=== PATIENT | female | born 1980 | race Asian ===

== ENCOUNTER 2018-12-16 17:21 | Emergency (ER) | payer MEDICAID ==
[~2018-12-16] VITALS: Ht 162.6 cm; Wt 64.4 kg
[2018-12-16 17:34] VITALS: BP_SYST 142
[2018-12-16] MEDS ORDERED: ONDANSETRON HCL 4 MG/2 ML VIAL IM ONE (18:00)
[2018-12-16] MEDS ORDERED: chlordiazePOXIDE HCL 25 MG CAPSULE PO ONE (18:15)
[2018-12-16 19:45] VITALS: BP_SYST 135
== END 2018-12-16 19:45 | disposition home or self-care (01) ==
LOC: SED 17:21
DX: F10.129 Alcohol abuse with intoxication, unspecified (principal); F17.210 Nicotine dependence, cigarettes, uncomplicated; I10 Essential (primary) hypertension; Z88.0 Allergy status to penicillin
CPT/HCPCS: 96372; 99283; J2405

== ENCOUNTER 2023-04-11 21:05 | Inpatient (IN) | payer MEDICAID ==
[~2023-04-11] VITALS: Ht 165.1 cm; Wt 61.2 kg
--- NOTE | 2023-04-11 22:13 | NUR ---
Patient placed in ER bed 8 for evaluation. Report given to PURA HULL for continuity of care. Bed in lowest position with side rails up. Instructed patient to notify ED staff for any changes in condition or worsening of symptoms. Patient verbalized understanding.
--- NOTE | 2023-04-11 22:30 | NUR ---
Patient presents with tremor related to alcohol withdrawl, patient states she drinks 350ml of alcohol daily but did not drink within the last 24 hours, states she has been using librium to assist with detoxing
--- NOTE | 2023-04-11 22:52 | NUR ---
Dr. KNAPP is at bedside examining the patient.
[2023-04-11] MEDS ORDERED: LORazepam 2 MG/ML VIAL IVP ONE (23:00)
[2023-04-11] MEDS ORDERED: NACL 0.9% 1,000 ML IV ONE (23:00)
[2023-04-11] MEDS ORDERED: ONDANSETRON HCL 4 MG/2 ML VIAL IVP ONE (23:00)
--- NOTE | 2023-04-11 23:18 | NUR ---
22g IV placed inleft wrist, IV would not draw blood, blood to be drawn by lab, medications given, IV fluids in progress,patient instructed not to consume fluids due to vomiting
[2023-04-11 23:52] LABS: BASOPHILS # (AUTO) 0.1 K/uL (0.0-0.2); BASOPHILS % (AUTO) 1.3 % (0.0-2.0); HEMATOCRIT 34.5 % (36-48); HEMOGLOBIN 11.8 g/dL (12.0-16.0); LYMPHOCYTES # (AUTO) 0.5 K/uL (1.0-5.5); LYMPHOCYTES % (AUTO) 5.3 % (20.5-51.5); MEAN CORPUSCULAR HEMOGLOBIN 33 pg (27-31); MEAN CORPUSCULAR HGB CONC 34 % (32-36); MEAN CORPUSCULAR VOLUME 97 fL (79.0-98.0); MONOCYTES # (AUTO) 0.5 K/uL (0.0-1.0); MONOCYTES % (AUTO) 5.8 % (1.7-9.3); NEUTROPHILS # (AUTO) 7.5 K/uL (1.8-7.7); NEUTROPHILS % (AUTO) 87.6 % (40.0-70.0); PLATELET COUNT (AUTO) 104 K/uL (130-430); RED BLOOD CELL COUNT(AUTO) 3.57 MIL/uL (4.2-6.2); RED CELL DISTRIBUTION WIDTH 17.1 % (9.0-15.0); WHITE BLOOD COUNT (AUTO) 8.5 K/uL (4.8-10.8)
[2023-04-12 00:11] LABS: ALANINE AMINOTRANSFERASE 33 U/L (12-78); ALBUMIN 3.4 g/dL (3.4-4.8); ANION GAP 14 (5-15); ASPARTATE AMINOTRANSFERASE 181 U/L (10-37); CALCIUM 7.7 mg/dL (8.4-11.0); CHLORIDE 98 mmol/L (98-107); CREATININE 1.18 mg/dL (0.55-1.30); GFR AFRICAN AMERICAN 64 mL/min (>90); GLUCOSE 194 mg/dL (70-99); TOTAL BILIRUBIN 1.8 mg/dL (0.0-1.0); UREA NITROGEN, BLOOD 9 mg/dL (8-21)
[2023-04-12 00:13] LABS: ACETAMINOPHEN < 1 ug/mL (1-30); ALCOHOL, BLOOD < 3 mg/dL (<10)
[2023-04-12] MEDS ORDERED: POTASSIUM CHLORIDE 40 MEQ in D5W 250 ML IV ONE (00:15)
[2023-04-12] MEDS ORDERED: KCL 40 mEq in 100 mL (PREMIX) 100 ML IV ONE (00:25)
[2023-04-12] MEDS ORDERED: LORazepam 2 MG/ML VIAL IVP ONE (01:00)
--- NOTE | 2023-04-12 01:09 | NUR ---
IV POTASSIUM IN PROGRESS FOR CRITCAL LAB VALUE OF 2.4, SECOND DOSE OF IVP ATIVAN GIVEN FOR TREMORS
[2023-04-12 01:15] LABS: BILIRUBIN,URINE 2+ (NEGATIVE); BLOOD, URINE 1+ (NEGATIVE); CLARITY/URINE SL CLOUDY (CLEAR); COLOR,URINE YELLOW (YELLOW); GLUCOSE,URINE NEGATIVE (NEGATIVE); KETONES,URINE TRACE (NEGATIVE); NITRITE, URINE NEGATIVE (NEGATIVE); PH,URINE 6.5 (5.0-8.0); PROTEIN URINE 3+ (NEGATIVE)
--- NOTE | 2023-04-12 01:23 | NUR ---
Dr. KNAPP is at bedside RE-examining the patient.
[2023-04-12 01:27] LABS: LEUKOCYTE ESTERASE ,URINE 1+ (NEGATIVE)
[2023-04-12] MEDS ORDERED: MAGNESIUM SULFATE 50 ML IV ONE (01:30)
[2023-04-12] MEDS ORDERED: FOLIC ACID 1 MG, THIAMINE HCL 100 MG, MAGNESIUM SULFATE 1 GM, MVI 10 ML in NACL 0.9% 1,... IV ONE (01:30)
[2023-04-12 01:40] LABS: BACTERIA,URINE MODERATE /HPF (None Seen); WBC,URINE 20-50 /HPF (0-3)
[2023-04-12] MEDS ORDERED: MAGNESIUM SULFATE 1 GM/2 ML VIAL ONE (01:41)
[2023-04-12] MEDS ORDERED: FOLIC ACID 5 MG/ML VIAL IV ONE (01:41)
[2023-04-12] MEDS ORDERED: THIAMINE HCL 100 MG/ML VIAL ONE (01:41)
[2023-04-12] MEDS: NACL 0.9% 1,000 ML IV SCH ×4 (02:16→23:46)
[2023-04-12] MEDS ORDERED: LOPERAMIDE HCL 2 MG CAPSULE PO ONE ×2 (02:30→08:00)
[2023-04-12 04:13] VITALS: BP_SYST 132
--- NOTE | 2023-04-12 04:23 | NUR ---
Transfer to via ACLS protocol. Licensed nurse present. IV present no signs or symptoms of infiltration.
[2023-04-12] MEDS: LORazepam 2 MG/ML VIAL IVP PRN ×3 (05:55→21:03)
--- NOTE | 2023-04-12 06:00 | NUR ---
NOTES: p[t. assisted to the restroom, uses cane. had another loose stool. IV NS resume at 100 cc/hr. KCL drip almost infuse. left wrist IV accidentally came out. pt. anxious. Ativan IV given as ordered. needs attended will endorse to incoming shift.
--- NOTE | 2023-04-12 06:55 | NUR ---
CLOSING NOTES;' pt. asleep, significant other at bedside. IV site patent, for further care and observation. will endorse to incoming shift.
[2023-04-12 07:19] LABS: BASOPHILS # (AUTO) 0.1 K/uL (0.0-0.2); BASOPHILS % (AUTO) 0.6 % (0.0-2.0); HEMATOCRIT 28.9 % (36-48); HEMOGLOBIN 9.7 g/dL (12.0-16.0); LYMPHOCYTES # (AUTO) 1.7 K/uL (1.0-5.5); LYMPHOCYTES % (AUTO) 20.7 % (20.5-51.5); MEAN CORPUSCULAR HEMOGLOBIN 33 pg (27-31); MEAN CORPUSCULAR HGB CONC 34 % (32-36); MEAN CORPUSCULAR VOLUME 99 fL (79.0-98.0); MONOCYTES # (AUTO) 0.9 K/uL (0.0-1.0); MONOCYTES % (AUTO) 11.3 % (1.7-9.3); NEUTROPHILS # (AUTO) 5.5 K/uL (1.8-7.7); NEUTROPHILS % (AUTO) 67.4 % (40.0-70.0); PLATELET COUNT (AUTO) 82 K/uL (130-430); RED BLOOD CELL COUNT(AUTO) 2.91 MIL/uL (4.2-6.2); RED CELL DISTRIBUTION WIDTH 16.6 % (9.0-15.0); WHITE BLOOD COUNT (AUTO) 8.2 K/uL (4.8-10.8)
[2023-04-12 07:28] LABS: ALBUMIN 2.5 g/dL (3.4-4.8); CREATININE 0.75 mg/dL (0.55-1.30); TOTAL BILIRUBIN 1.6 mg/dL (0.0-1.0)
[2023-04-12 07:35] LABS: CALCIUM 6.3 mg/dL (8.4-11.0)
[2023-04-12 08:00] VITALS: BP_SYST 137
[2023-04-12] MEDS ORDERED: DOCUSATE SODIUM 100 MG CAPSULE PO PRN (08:00)
[2023-04-12] MEDS ORDERED: ACETAMINOPHEN 325 MG TABLET PO PRN ×2 (08:00→08:30)
[2023-04-12] MEDS ORDERED: MUPIROCIN 2% TOPICAL OINTMENT 22 GM NS PRN (08:00)
[2023-04-12] MEDS ORDERED: ZOLPIDEM TARTRATE 5 MG TABLET PO PRN (08:00)
[2023-04-12] MEDS ORDERED: MAGNESIUM SULFATE 50 ML IV PRN (08:00)
[2023-04-12] MEDS ORDERED: ONDANSETRON HCL 4 MG/2 ML VIAL IVP PRN (08:00)
--- NOTE | 2023-04-12 08:00 | NUR ---
Start of shift Pt drowsy and lethargic - lying in bed, easily arousable at this time. Dr Thomas was at bedside assessing pt. Pt's friend Chava still at bedside, spent the night at bedside. Pt's tele unit attached and intact. IV in LAC intact and patent infusing IVF's. Call light within reach.
[2023-04-12] MEDS ORDERED: CALCIUM GLUCONATE 500 MG TAB Non-Formulary PO SCH (09:00)
[2023-04-12] MEDS: THIAMINE HCL 100 MG TABLET PO SCH (09:01)
[2023-04-12] MEDS: chlordiazePOXIDE HCL 25 MG CAPSULE PO SCH ×3 (09:02→21:04)
[2023-04-12] MEDS: FOLIC ACID 1 MG TABLET PO SCH (09:02)
[2023-04-12] MEDS: POTASSIUM CHLORIDE 20 MEQ TAB.PRT.SR PO SCH ×2 (09:02→21:04)
[2023-04-12] MEDS: CALCIUM 500 MG/TAB PO SCH ×2 (09:49→21:04)
[2023-04-12 11:17] VITALS: BP_SYST 129
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
--- NOTE | 2023-04-12 14:10 | NUR ---
Note Pt's friend left bedside around 0920am and now returned to bedside around 1145am. Pt encouraged to call before getting OOB with IV pole to go to restroom. Pt had 2 episodes of diarrhea. Pt was given BSC, informed she still needs to call for assistance before getting OOB to BSC or restroom. Pt's friend stated he would be at bedside to assist pt OOB to restroom or BSC. Pt sleepy at this time. Pt eating her Clear liquids lunch slowly. No N/V noted all shift. Call light within reach. No needs noted.
[2023-04-12 15:29] VITALS: BP_SYST 132
--- NOTE | 2023-04-12 18:40 | NUR ---
End of shift Pt resting in bed, friend Chava at bedside. IV in LAC intact and patent infusing IVF's well. Pt has been using BSC with standby assist from friend. Pt had no severe seizure activity or withdrawal from ETOH all shift. Pt was maintained with safety precautions all shift. Pt was checked on q1' and PRN all shift for needs and care. Tele unit attached and intact. Call light within reach. No needs noted.
[2023-04-12 19:42] LABS: BARBITURATE, URINE NEGATIVE (NEG <=200); BENZODIAZEPINE, URINE POSITIVE (NEG <=150); METHAMPHETAMINES SCREEN,URINE NEGATIVE (NEG <=500); URINE AMPHETAMINE NEGATIVE (NEG <=500); URINE METHADONE NEGATIVE (NEG <=200)
[2023-04-12 19:43] LABS: CANNABINOID, URINE NEGATIVE (NEG <=50); COCAINE, URINE NEGATIVE (NEG <=150); OPIATE, URINE NEGATIVE (NEG <=100); PHENCYCLIDINE SCREEN,URINE NEGATIVE (NEG <=25); UR TRICYCLIC ANTIDEPRESSANTS NEGATIVE (NEG <=300); URINE OXYCODONE SCREEN NEGATIVE (NEG <=100); URINE PROPOXYPHENE SCREEN NEGATIVE (NEG <=300)
--- NOTE | 2023-04-12 20:00 | NUR ---
Recieved pt from AM shift. Pt aox4, weak, infiltrated IV replaced with 20g right forearm. Pt encouraged to call before getting OOB with IV pole to go to restroom through the nite.. Pt requested immodium for prophylaxis due to bouts of diarhea. none noted today. Pt is nauseated, and will give medications to resolve. . Pt was given BSC, informed she still needs to call for assistance before getting OOB to BSC or restroom. Pt's friend stated he would be at bedside to assist pt OOB to restroom or BSC. Pt tired at this time. Pt eating her Clear liquids lunch slowly. Call light within reach. No needs noted by pt and partner at bedside. will continue to monitor through the night.
[2023-04-12 20:11] VITALS: BP_SYST 129
[2023-04-12 20:12] VITALS: BP_SYST 129
--- NOTE | 2023-04-12 21:00 | NUR ---
pt requests ativan, will asses and re-evaluate.
[2023-04-13 01:31] VITALS: BP_SYST 132
[2023-04-13] MEDS: LORazepam 2 MG/ML VIAL IVP PRN (03:45)
--- NOTE | 2023-04-13 03:52 | NUR ---
gave 2mg of ativan per pt request. will re-evaluate
[2023-04-13 05:02] LABS: BASOPHILS # (AUTO) 0.1 K/uL (0.0-0.2); BASOPHILS % (AUTO) 1.2 % (0.0-2.0); EOSINOPHILS # (AUTO) 0.1 K/uL (0.0-0.4); EOSINOPHILS % (AUTO) 2.3 % (0.0-4.0); HEMATOCRIT 27.7 % (36-48); HEMOGLOBIN 9.3 g/dL (12.0-16.0); LYMPHOCYTES # (AUTO) 2.3 K/uL (1.0-5.5); LYMPHOCYTES % (AUTO) 40.4 % (20.5-51.5); MEAN CORPUSCULAR HEMOGLOBIN 34 pg (27-31); MEAN CORPUSCULAR HGB CONC 34 % (32-36); MEAN CORPUSCULAR VOLUME 100 fL (79.0-98.0); MONOCYTES # (AUTO) 0.6 K/uL (0.0-1.0); MONOCYTES % (AUTO) 11.1 % (1.7-9.3); NEUTROPHILS # (AUTO) 2.6 K/uL (1.8-7.7); PLATELET COUNT (AUTO) 89 K/uL (130-430); RED BLOOD CELL COUNT(AUTO) 2.77 MIL/uL (4.2-6.2); RED CELL DISTRIBUTION WIDTH 16.7 % (9.0-15.0); WHITE BLOOD COUNT (AUTO) 5.7 K/uL (4.8-10.8)
[2023-04-13 05:21] LABS: ALBUMIN 2.6 g/dL (3.4-4.8); CALCIUM 7.5 mg/dL (8.4-11.0); CREATININE 0.58 mg/dL (0.55-1.30); TOTAL BILIRUBIN 1.3 mg/dL (0.0-1.0)
--- NOTE | 2023-04-13 05:31 | NUR ---
CL K+ 2.7 called MD.
--- NOTE | 2023-04-13 05:44 | NUR ---
NNO per Primary MD
[2023-04-13] MEDS: POTASSIUM CHLORIDE 20 MEQ TAB.PRT.SR PO PRN ×2 (05:56→09:18)
[2023-04-13] MEDS: NACL 0.9% 1,000 ML IV SCH ×2 (05:58→11:16)
--- NOTE | 2023-04-13 06:01 | NUR ---
prn 40 meq kdur given. K+ 2.7
--- NOTE | 2023-04-13 07:30 | NUR ---
OPENING NOTE Patient laying in bed. A/O x4, Norwegian speaking. Breathing is even and unlabored on RA. No pain, no SOB, no distress noted. Patient has no IV access and MD was made aware. Patient able to get up to use the restroom. Patient is on clear liquid diet and able to feed herself. All needs met at this time. Bed is locked in lowest position. Call light within reach. Will continue with POC.
[2023-04-13] MEDS ORDERED: POTASSIUM CHLORIDE 40 MEQ, LIDOCAINE JECT 2% PF 100 MG 50 MG in NS 250 ML IV ONE (08:00)
[2023-04-13] MEDS ORDERED: FOLI-43 PO (08:13)
[2023-04-13] MEDS ORDERED: LIB25 PO (08:13)
[2023-04-13] MEDS ORDERED: THIA50TA10 PO (08:13)
[2023-04-13 08:15] VITALS: BP_SYST 135
[2023-04-13] MEDS ORDERED: CIPR500T5 PO (08:16)
[2023-04-13] MEDS: POTASSIUM CHLORIDE 20 MEQ TAB.PRT.SR PO SCH (09:18)
[2023-04-13] MEDS: chlordiazePOXIDE HCL 25 MG CAPSULE PO SCH ×2 (09:18→14:09)
[2023-04-13] MEDS: CALCIUM 500 MG/TAB PO SCH (09:18)
[2023-04-13] MEDS: FOLIC ACID 1 MG TABLET PO SCH (09:18)
[2023-04-13] MEDS: THIAMINE HCL 100 MG TABLET PO SCH (09:19)
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
--- NOTE | 2023-04-13 12:10 | NUR ---
ROUNDS Patient laying in bed, resting. Breathing is even and unlabored on RA. No pain, no SOB, no distress noted. All needs met at this time. Bed is locked in lowest position. Call light within reach. Will continue with POC.
[2023-04-13 12:32] VITALS: BP_SYST 134
[2023-04-13 14:27] VITALS: BP_SYST 134
--- NOTE | 2023-04-13 15:11 | NUR ---
D/C Patient Patient given medication reconciliation form and D/C instructions. Exit Care provided. Patient verbalized understanding. MD Thomas discussed with patient the results and treatment provided. Ambulatory with steady gait for discharge to home. Patient in stable condition, ID band removed. IV catheter removed, intact and dressing applied, no active bleeding. Med rec paper given with instructions of pharmacy for pickup. Patient educated on alcohol dependency. All belongings sent with patient.
[2023-04-13 16:49] VITALS: BP_SYST 136
== END 2023-04-13 15:11 | disposition home or self-care (01) | DRG 463 ==
LOC: SED 21:05 → STU 04-12 01:27
PROVIDERS: ADMIT General Practice; ATTEND General Practice
DX: N39.0 Urinary tract infection, site not specified (principal); E44.0 Moderate protein-calorie malnutrition; E83.51 Hypocalcemia; D63.8 Anemia in other chronic diseases classified elsewhere; E87.6 Hypokalemia; F10.239 Alcohol dependence with withdrawal, unspecified; Z68.22 Body mass index [BMI] 22.0-22.9, adult; E11.9 Type 2 diabetes mellitus without complications; Z20.822 Contact with and (suspected) exposure to COVID-19; Z88.0 Allergy status to penicillin
CPT/HCPCS: 36415; 71045; 80053; 80307; 81000; 82550; 83037; 83735; 84132; 84484; 84703; 85025; 87086; 93005; 99291; G0378; G0480; G0482; J1956; J2060; J2405; J3411; J3475; J3480; J3490; J7050; J7060